=== PATIENT | female | born 1945 | race Hispanic/Latino ===

== ENCOUNTER 2021-07-30 18:45 | Emergency (ER) | payer MEDICARE, OTHER ==
[~2021-07-30] VITALS: Ht 157.5 cm; Wt 72.6 kg
[2021-07-30] MEDS ORDERED: SODIUM CHLORIDE 0.9% 1000ML 1,000 ML IV STA (19:24)
[2021-07-30] MEDS ORDERED: ACETAMINOPHEN-1 EAC3 PO (20:22)
[2021-07-30] MEDS ORDERED: CLINDAMYCIN HC300 MG PO (20:22)
[2021-07-30 21:18] VITALS: BP 167/76
== END 2021-07-30 20:43 | disposition home or self-care (01) ==
LOC: FSED 19:15
DX: I16.0 Hypertensive urgency (principal); K08.89 Other specified disorders of teeth and supporting structures; R51.9 Headache, unspecified; I10 Essential (primary) hypertension
CPT/HCPCS: 70450; 71045; 93005; 99283

== ENCOUNTER → 2021-12-16 | Outpatient (CLI) | payer MEDICARE, OTHER ==
[~2021-12-16] MED LIST: ACETAMINOPHEN-1 EAC3 PO; CLINDAMYCIN HC300 MG PO
== END ==
LOC: RAD 07:59
PROVIDERS: ATTEND Internal Medicine
DX: G45.9 Transient cerebral ischemic attack, unspecified (principal); J41.0 Simple chronic bronchitis
CPT/HCPCS: 71046

== ENCOUNTER → 2022-02-01 | Outpatient (CLI) | payer MEDICARE, OTHER | LOC: RAD 15:39 | PROVIDERS: ATTEND Internal Medicine | DX: R55 Syncope and collapse (principal) | CPT/HCPCS: 72040 ==

== ENCOUNTER → 2022-06-29 | Outpatient (CLI) | payer MEDICARE, OTHER | LOC: DX 10:53 | PROVIDERS: ATTEND Internal Medicine | DX: M81.8 Other osteoporosis without current pathological fracture (principal); M16.11 Unilateral primary osteoarthritis, right hip; S33.5XXA Sprain of ligaments of lumbar spine, initial encounter | CPT/HCPCS: 72110; 77080 ==

== ENCOUNTER → 2023-05-08 | Outpatient (CLI) | payer MEDICARE, OTHER | LOC: RAD 09:48 | PROVIDERS: ATTEND Internal Medicine | DX: J41.0 Simple chronic bronchitis (principal) | CPT/HCPCS: 71046 ==

== ENCOUNTER 2024-09-08 12:31 | Emergency (ER) | payer MEDICARE, OTHER ==
[~2024-09-08] VITALS: Ht 157.5 cm; Wt 72.6 kg
[2024-09-08 13:18] VITALS: PULSE 95; RESP 12; TEMP 99.3; O2SAT 99
[2024-09-08 13:51] LABS: BASOPHILS # (AUTO) 0.1 (0.0-0.1); BASOPHILS % 0.7 % (0.0-1.0); EOSINOPHILS % 0.4 % (0.0-6.0); HEMATOCRIT 32.8 % (34.2-44.1); HEMOGLOBIN 9.9 g/dL (12.0-16.0); LYMPHOCYTES # (AUTO) 1.1 (1.0-3.2); MEAN CORPUSCULAR HEMOGLOBIN 29.6 pg (28-32); MEAN CORPUSCULAR HGB CONC 30.2 g/dL (31-35); MEAN CORPUSCULAR VOLUME 98.2 fL (81-99); MONOCYTES # (AUTO) 0.9 (0.2-0.8); MONOCYTES % 8.5 % (4.4-11.3); NEUTROPHILS # (AUTO) 7.9 (2.1-6.9); NEUTROPHILS % 78.7 % (38.7-80.0); PLATELET COUNT 252 x10e3/uL (140-360); RED BLOOD COUNT 3.34 x10e6/uL (3.6-5.1); RED CELL DISTRIBUTION WIDTH 13.5 % (11.7-14.4); WHITE BLOOD COUNT 9.99 x10e3/uL (4.8-10.8)
[2024-09-08 14:10] LABS: ALBUMIN 3.5 g/dL (3.5-5.0); ALBUMIN/GLOBULIN RATIO 0.9 (0.8-2.0); ANION GAP 16.3 mmol/L (8-16); BILIRUBIN,TOTAL 0.5 mg/dL (0.2-1.2); CALCIUM 9.7 mg/dL (8.4-10.2); CREATININE, SERUM 1.57 mg/dL (0.57-1.11); POTASSIUM 4.3 mmol/L (3.5-5.1); TOTAL PROTEIN 7.4 g/dL (6.5-8.1)
[2024-09-08 14:34] LABS: FREE T4 (FREE THYROXINE) 1.47 ng/dL (0.8-1.8); THYROID STIMULATING HORMONE 0.212 uIU/mL (0.350-4.940)
[2024-09-08] MEDS: SODIUM CHLORIDE 0.9% 1000ML 1,000 ML IV ONE (15:54)
== END 2024-09-08 17:17 | disposition home or self-care (01) ==
LOC: ER 12:46
DX: R50.9 Fever, unspecified (principal); E86.1 Hypovolemia; I10 Essential (primary) hypertension; E11.9 Type 2 diabetes mellitus without complications; E78.5 Hyperlipidemia, unspecified; F32.A Depression, unspecified
CPT/HCPCS: 36415; 71046; 80053; 83880; 84439; 84443; 85025; 99284; J7030